=== PATIENT | female | born 1990 | race African-American/Black ===

== ENCOUNTER 2016-10-07 15:46 | Emergency (ER) | payer SELFPAY ==
[~2016-10-07] VITALS: Ht 160 cm; Wt 68.2 kg
[~2016-10-07 15:46] MED LIST: NITR100C62 PO; ONDA4TAB10 PO
[2016-10-07] MEDS ORDERED: ONDANSETRON PF 4 MG/2 ML VIAL. IV ONE (16:30)
[2016-10-07] MEDS ORDERED: IV NORMAL SALINE 1,000ML 1,000 ML IV SCH (16:30)
[2016-10-07 16:35] LABS: BASO % 0 % (0-3); EOS % 0 % (0-3); HEMATOCRIT 38.6 % (36.0-47.0); HEMOGLOBIN 12.8 g/dL (12.0-15.5); LYMPH # 0.4 x10^3/uL (1.0-4.8); LYMPH % 3 % (24-48); MEAN CORPUSCULAR HEMOGLOBIN 27 pg (25-35); MEAN CORPUSCULAR HGB CONC 33 g/dL (31-37); MEAN CORPUSCULAR VOLUME 82 fL (79-100); MONO % 7 % (0-9); NEUT # 12.9 x10^3uL (1.8-7.7); NEUT % 90 % (31-73); PLATELET COUNT 202 x10^3/uL (140-400); RED BLOOD COUNT 4.69 x10^6/uL (3.50-5.40); RED CELL DISTRIBUTION WIDTH 13.7 % (11.5-14.5); WHITE BLOOD COUNT 14.4 x10^3/uL (4.0-11.0)
[2016-10-07 16:47] LABS: ALBUMIN 3.5 g/dL (3.4-5.0); ALBUMIN/GLOBULIN RATIO 0.7 (1.0-1.7); CREATININE 0.9 mg/dL (0.6-1.0); GFR 92.3; POTASSIUM 3.7 mmol/L (3.5-5.1); TOTAL BILIRUBIN 0.6 mg/dL (0.2-1.0); TOTAL PROTEIN 8.2 g/dL (6.4-8.2)
[2016-10-07 16:52] LABS: INFLUENZA A PATIENT NEGATIVE (NEGATIVE); INFLUENZA B PATIENT NEGATIVE (NEGATIVE)
[2016-10-07 17:23] LABS: BILIRUBIN,URINE NEG (NEG); CLARITY,URINE HAZY; COLOR,URINE AMBER; GLUCOSE,URINE NEG (NEG); NITRITE,URINE NEG (NEG); UROBILINOGEN,URINE 0.2 mg/dL (0.2 mg/dL)
[2016-10-07 17:26] LABS: BACTERIA,URINE MOD /HPF (0-FEW); SQUAMOUS EPITHELIAL CELL,UR MOD /LPF
[2016-10-07 17:27] LABS: HYALINE CASTS, URINE FEW /HPF
[2016-10-07] MEDS ORDERED: ONDA4TAB10 SL (17:46)
[2016-10-07] MEDS ORDERED: HYDR-971 PO (17:46)
--- NOTE | 2016-10-07 17:46 | PHYS DOC ---
Past History Past Medical History: Endometriosis, Ovarian Cyst, UTI Past Surgical History: Appendectomy Smoking: Non-smoker Alcohol Use: None Drug Use: None Adult General Chief Complaint Chief Complaint: ABDOMINAL PAIN IN HPI HPI 26-year-old at 11 weeks of gestation complaining of 2 episode of vomiting and 4 episodes of diarrhea and cramping abdominal pain fever since 2 AM without sick contact. She denies vaginal bleeding, shortness of breath. Review of Systems Review of Systems Constitutional: see HPI] Eyes: Denies change in visual acuity, redness, or eye pain [] HENT: Denies sore throat [] Respiratory: Denies cough or shortness of breath [] Cardiovascular: See HPI GI: See HPI : Denies dysuria or hematuria [] Musculoskeletal: Denies back pain or joint pain [] Integument: Denies rash or skin lesions [] Neurologic: Denies headache, focal weakness or sensory changes [] Endocrine: Denies polyuria or polydipsia [] Current Medications Current Medications Current Medications Medications (Trade) Dose Ordered Sig/Lavon Start Time Stop Time Status Last Admin Dose Admin Ondansetron HCl (Zofran) 4 mg 1X ONCE 10/07/16 16:30 10/07/16 16:31 DC 10/07/16 16:29 4 MG Sodium Chloride (Iv Sodium Chloride 0.9% 1,000ml) 1,000 ml @ 1,000 mls/hr Q1H 10/07/16 16:30 17 17:29 DC 10/07/16 16:30 1,000 MLS/HR Allergies Allergies Allergies Coded Allergies Type Severity Reaction Last Updated Verified Sulfa (Sulfonamide Antibiotics) Allergy Severe Nausea and Vomiting 11/05/13 Yes Physical Exam Physical Exam Constitutional: Mild distress, non-toxic appearance. [] HENT: Normocephalic, atraumatic, bilateral external ears normal, oropharynx moist, no oral exudates, nose normal. [] Eyes: PERRLA, EOMI, conjunctiva normal, no discharge. [] Neck: Normal range of motion, no tenderness, supple, no stridor. [] Cardiovascular:Heart rate regular rhythm, no murmur [] Lungs & Thorax: Bilateral breath sounds clear to auscultation [] Abdomen: Bowel sounds normal, soft, no tenderness, no masses, no pulsatile masses. [] Skin: Warm, dry, no erythema, no rash. [] Back: No tenderness, no CVA tenderness. [] Extremities: No tenderness, no cyanosis, no clubbing, ROM intact, no edema. [] Neurologic: Alert and oriented X 3, normal motor function, normal sensory function, no focal deficits noted. [] Psychologic: Affect normal, judgement normal, mood normal. [] Current Patient Data Vital Signs Vital Signs Date Time Temp Pulse Resp B/P Pulse Ox O2 Delivery O2 Flow Rate FiO2 10/07/16 15:46 100.2 97 18 97 Room Air Lab Results Laboratory Tests Test 10/07/16 16:13 10/07/16 16:58 White Blood Count 14.4x10^3/uL (4.0-11.0) H Red Blood Count 4.69x10^6/uL (3.50-5.40) Hemoglobin 12.8g/dL (12.0-15.5) Hematocrit 38.6% (36.0-47.0) Mean Corpuscular Volume 82fL (79-100) Mean Corpuscular Hemoglobin 27pg (25-35) Mean Corpuscular Hemoglobin Concent 33g/dL (31-37) Red Cell Distribution Width 13.7% (11.5-14.5) Platelet Count 202x10^3/uL (140-400) Neutrophils (%) (Auto) 90% (31-73) H Lymphocytes (%) (Auto) 3% (24-48) L Monocytes (%) (Auto) 7% (0-9) Eosinophils (%) (Auto) 0% (0-3) Basophils (%) (Auto) 0% (0-3) Neutrophils # (Auto) 12.9x10^3uL (1.8-7.7) H Lymphocytes # (Auto) 0.4x10^3/uL (1.0-4.8) L Monocytes # (Auto) 1.0x10^3/uL (0.0-1.1) Eosinophils # (Auto) 0.0x10^3/uL (0.0-0.7) Basophils # (Auto) 0.0x10^3/uL (0.0-0.2) Sodium Level 134mmol/L (136-145) L Potassium Level 3.7mmol/L (3.5-5.1) Chloride Level 98mmol/L (98-107) Carbon Dioxide Level 24mmol/L (21-32) Anion Gap 12 (6-14) Blood Urea Nitrogen 6mg/dL (7-20) L Creatinine 0.9mg/dL (0.6-1.0) Estimated GFR (Cockcroft-Gault) 92.3 BUN/Creatinine Ratio 7 (6-20) Glucose Level 91mg/dL (70-99) Calcium Level 9.0mg/dL (8.5-10.1) Total Bilirubin 0.6mg/dL (0.2-1.0) Aspartate Amino Transferase (AST) 11U/L (15-37) L Alanine Aminotransferase (ALT) 16U/L (14-59) Alkaline Phosphatase 67U/L (46-116) Total Protein 8.2g/dL (6.4-8.2) Albumin 3.5g/dL (3.4-5.0) Albumin/Globulin Ratio 0.7 (1.0-1.7) L Lipase 92U/L (73-393) Influenza Type A (Rapid) Negative (NEGATIVE) Influenza Type B (Rapid) Negative (NEGATIVE) Urine Collection Type Unknown Urine Color Clarisa Urine Clarity Hazy Urine pH 5.5 Urine Specific Harold 1.025 Urine Protein 30 mg/dl (NEG-TRACE) Urine Glucose (UA) Negmg/dL (NEG) Urine Ketones (Stick) >=160mg/dL (NEG) Urine Blood Mod (NEG) Urine Nitrite Neg (NEG) Urine Bilirubin Neg (NEG) Urine Urobilinogen Dipstick 0.2mg/dL (0.2 mg/dL) Urine Leukocyte Esterase Small (NEG) Urine RBC 3-5/HPF (0-2) Urine WBC 11-20/HPF (0-4) Urine Squamous Epithelial Cells Mod/LPF Urine Bacteria Mod/HPF (0-FEW) Urine Hyaline Casts Few/HPF Urine Mucus Marked/LPF EKG EKG [] Radiology/Procedures Radiology/Procedures [] Course & Med Decision Making Course & Med Decision Making Pertinent Labs reviewed. (See chart for details) Evaluation of patient showed elevated weeks complaining of 2 episodes of vomiting and 4 episodes of diarrhea and fever. Temperature 100.1 in ER. Patient treated with IV fluid and Zofran. patient had a white count of 14,000 with history of appendectomy. Plan discharge patient home to diagnoses of acute gastroenteritis and fever and instruction to follow up with his physician as needed. UA shows UTI and Rocephin was ordered. Dragon Disclaimer Dragon Disclaimer This chart was dictated in whole or in part using Voice Recognition software in a busy, high-work load, and often noisy Emergency Department environment. It may contain unintended and wholly unrecognized errors or omissions. Departure Departure: Impression: Primary Impression: Acute gastroenteritis Additional Impressions: Fever Currently UTI (urinary tract infection) during Condition: IMPROVED Referrals: PERICO ARTEAGA MD (PCP) Patient Instructions: Viral Gastroenteritis Scripts Cephalexin (Keflex)500 Mg Capsule1 Cap PO TID #21 CAP Prov:AMALIA LONGORIA MD 10/07/16 Hydrocodone Bit/Acetaminophen (Sigel 5-325 Tablet)1 Each Tablet1 Tab PO QID PRN PAIN #14 TAB Ref 0 Prov:AMALIA LONGORIA MD 10/07/16 Ondansetron (Zofran Odt)4 Mg Tab.rapdis1 Tab SL Q8HRS #15 TAB Prov:AMALIA LONGORIA MD 10/07/16 Problem Qualifiers AMALIA LONGORIA MD Oct 07, 2016 17:46
[2016-10-07] MEDS ORDERED: CEPH-264 PO (17:49)
[2016-10-07] MEDS ORDERED: CEFTRIAXONE SODIUM 1 GM in IV NORMAL SALINE 50ML 50 ML IV ONE (18:00)
[2016-10-07] MEDS ORDERED: IV NORMAL SALINE 1,000ML 1,000 ML IV ONE (18:00)
[2016-10-07] MEDS ORDERED: CEFTRIAXONE SODIUM 1 GM VIAL IV ONE (18:11)
[2016-10-07] MEDS ORDERED: IV NORMAL SALINE 50ML 50 ML ONE (18:11)
[2016-10-07] MEDS ORDERED: ACETAMINOPHEN 325 MG TABLET PO ONE (19:00)
[2016-10-07 19:25] VITALS: BP 104/58
== END 2016-10-07 19:25 | disposition home or self-care (01) ==
LOC: ER 15:46
DX: O99.611 Diseases of the digestive system complicating pregnancy, first trimester (principal); K52.9 Noninfective gastroenteritis and colitis, unspecified; R50.9 Fever, unspecified; O23.41 Unspecified infection of urinary tract in pregnancy, first trimester; Z3A.11 11 weeks gestation of pregnancy; Z88.2 Allergy status to sulfonamides
CPT/HCPCS: 36415; 80053; 81001; 83690; 85027; 87804; 99284; J0696; J2405; J7030

== ENCOUNTER → 2017-03-01 | Outpatient (CLI) | payer OTHER ==
[~2017-03-01] MED LIST changes: +CEPH-264 PO; +HYDR-971 PO; +ONDA4TAB10 SL
--- NOTE | 2017-03-01 16:42 | RAD ---
Three-view lumbar spine radiographs 03/13/2017 Clinical history: Low back pain which radiates down both legs for the last 2 months. AP and 2 lateral digital radiographs of the lumbar spine were obtained. Minimal S shaped curvature of the thoracic lumbar spine is seen. L5 is partially sacralized. Hypoplastic ribs are seen at T12. No fracture or subluxation of the lumbar vertebrae is seen. No significant degenerative changes are noted. Impression: No acute osseous abnormality is seen.
== END | disposition home or self-care (01) ==
LOC: DXRADRC 15:57
PROVIDERS: ATTEND Physician Assistant
DX: M54.16 Radiculopathy, lumbar region (principal)
CPT/HCPCS: 72100

== ENCOUNTER → 2018-07-20 | Outpatient (CLI) | payer OTHER ==
[~2018-07-20] MED LIST changes: +HYDR-3165 PO; -HYDR-971 PO
--- NOTE | 2018-07-20 12:57 | RAD ---
Examination: Bilateral Lower Extremity Venous Doppler Ultrasound History: Lower extremity swelling Comparison: None Procedure: Briones scale, color flow 2D and spectal waveform analysis images are obtained with and without compression in the area of the common femoral vein, superficial femoral vein - femoral vein junction, main femoral vein (superficial femoral vein) and popliteal vein. Veins of the proximal calf are also imaged. Findings: There is normal duplex flow, color flow and compressibility of all visualized vein segments. No evidence of deep venous thrombus is present. Impression: No evidence of DVT in the visualized bilateral lower extremity venous system. Electronically signed by: Sukhjinder Sweeney MD (07/20/2018 12:53 PM) [place] [id number]
== END | disposition home or self-care (01) ==
LOC: US 10:57
PROVIDERS: ATTEND Internal Medicine Medical Oncology
DX: R60.0 Localized edema (principal); N96 Recurrent pregnancy loss
CPT/HCPCS: 93970

== ENCOUNTER → 2018-08-16 | Outpatient (CLI) | payer OTHER ==
--- NOTE | 2018-08-16 16:56 | RAD ---
Indication: History of Endometriosis. Pelvic pain. TECHNIQUE: Grayscale, color Doppler and spectral waveform images of the pelvis COMPARISON: None FINDINGS: The uterus is anteverted and measures 9.0 x 4.0 x 5.1 cm (longitudinal, AP, transverse). Endometrial stripe measures 1 cm in thickness and is within normal limits. The right ovary measures 2.4 x 1.5 x 1.2 cm. The left ovary measures 3.3 x 2.0 x 3.0 cm with a 0.9 x 0.8 x 1.1 cm dominant follicle. Bilateral ovaries show blood flow. No free pelvic fluid. IMPRESSION: No acute findings. Electronically signed by: Tyrell Mesa DO (08/16/2018 4:51 PM) [id number]
== END | disposition home or self-care (01) ==
LOC: US 14:24
PROVIDERS: ATTEND Obstetrics & Gynecology
DX: N80.9 Endometriosis, unspecified (principal)
CPT/HCPCS: 76830; 76856

== ENCOUNTER 2018-11-04 08:27 | Emergency (ER) | payer OTHER ==
[~2018-11-04] VITALS: Ht 160 cm; Wt 83.2 kg
[2018-11-04] MEDS ORDERED: IV NORMAL SALINE 1,000ML 1,000 ML IV SCH (08:43)
--- NOTE | 2018-11-04 08:50 | PHYS DOC ---
Past History Past Medical History: Endometriosis, Ovarian Cyst, UTI, Other Additional Past Medical Histor: SLE, Protein S, blood clots Past Surgical History: Appendectomy, Hysterectomy Smoking: Non-smoker Alcohol Use: None Drug Use: None Adult General Chief Complaint Chief Complaint: POST-OP PROBLEM HPI HPI Patient is a 28-year-old female presents with diffuse abdominal pain. This is been present for the past 3-4 days, getting worse over time. Patient is approximately 3 weeks post hysterectomy. She notes that the bleeding postop has been improving. This procedure was performed transvaginally. She notes some nausea, no vomiting, no diarrhea. Movement makes the discomfort worse. She also notes some dysuria as well as cloudy urine for the past several days as well. No fever, however she is experiencing the hot flashes with having had the hysterectomy. Hysterectomy was performed due to endometriosis. Patient is currently on heparin therapy due to history of previous blood clots due to lupus as well as protein S disorder. Surgery was performed at [facility].[] Review of Systems Review of Systems Constitutional: Denies fever or chills [] Eyes: Denies change in visual acuity, redness, or eye pain [] HENT: Denies nasal congestion or sore throat [] Respiratory: Denies cough or shortness of breath [] Cardiovascular: No chest pain or palpitations[] GI: See history of present illness[] : Denies hematuria, see history of present illness [] Musculoskeletal: Denies back pain or joint pain [] Integument: Denies rash or skin lesions [] Neurologic: Denies headache, focal weakness or sensory changes [] Endocrine: Denies polyuria or polydipsia [] All other systems were reviewed and found to be within normal limits, except as documented in this note. Allergies Allergies Allergies Coded Allergies Type Severity Reaction Last Updated Verified Sulfa (Sulfonamide Antibiotics) Allergy Severe Nausea and Vomiting 11/05/13 Yes Physical Exam Physical Exam Constitutional: Well developed, well nourished, no acute distress, non-toxic appearance. [] HENT: Normocephalic, atraumatic, bilateral external ears normal, oropharynx moist, no oral exudates, nose normal. [] Eyes: PERRLA, EOMI, conjunctiva normal, no discharge. [] Neck: Normal range of motion, no tenderness, supple, no stridor. [] Cardiovascular:Heart rate regular rhythm, no murmur [] Lungs & Thorax: Bilateral breath sounds clear to auscultation [] Abdomen: Bowel sounds normal, soft, diffuse tenderness, no rebound, no guarding , no rigidity, sits up and lays back without any significant difficulty., no masses, no pulsatile masses. [] Skin: Warm, dry, no erythema, no rash. [] Back: No tenderness, no CVA tenderness. [] Extremities: No tenderness, no cyanosis, no clubbing, ROM intact, no edema. [] Neurologic: Alert and oriented X 3, normal motor function, normal sensory function, no focal deficits noted. [] Psychologic: Affect normal, judgement normal, mood normal. [] EKG EKG [] Radiology/Procedures Radiology/Procedures PROCEDURE: CT ABD PELV W/ IV CONTRST ONLY CT abdomen and pelvis with contrast. HISTORY: Hysterectomy 3 weeks ago, abdominal pain CT scan the abdomen and pelvis was done using 75 mL Omnipaque 300 contrast. Lung bases are clear. There is no effusion. A liver lesion is not identified. There is no calcified gallstone. Spleen and adrenal glands are normal. Pancreas is normal. There is no mass or hydronephrosis in the kidneys. There is a focal scar in the upper left kidney. There is no free air or ascites or bowel obstruction. Appendix is not identified possibly previous appendectomy. There is a trace of inflammation or fluid in the lower pelvis without an abscess. There is a small amount of air in the vagina. Ovaries are identified and appear normal. IMPRESSION: 1. Minimal inflammation or fluid in the lower pelvis without a defined abscess. 2. No free air. 3. No bowel obstruction 4. Mild scarring in the left kidney. 5. No hydronephrosis or obstruction of the kidneys.[] Course & Med Decision Making Course & Med Decision Making Pertinent Labs and Imaging studies reviewed. (See chart for details) ED course: Patient arrived, was placed in bed, and tolerated exam well. She was transported to and from [place] with any complications. She was given IV fluids as well as pain medicines which didn't improve her pain. After the results of the laboratory and imaging studies were obtained, these were discussed with the patient voiced understanding. She was given initial dose of IV antibiotics for the urinary tract infection. She was discharged in improved condition after all questions were answered. Medical decision making: There is no evidence of obstruction, perforation, abscess, retained surgical instrument, pyelonephritis, nor significant bleeding. [] Dragon Disclaimer Dragon Disclaimer This electronic medical record was generated, in whole or in part, using a voice recognition dictation system. Departure Departure: Impression: Primary Impression: Abdominal pain Additional Impression: Urinary tract infection Disposition: HOME, SELF-CARE Condition: IMPROVED Referrals: ZENA CAMPOS MD (PCP) Follow-up in 2 days Patient Instructions: Abdominal Pain, Hysterectomy, Care After, Urinary Tract Infection Additional Instructions: Drink plenty of fluids. Follow-up with your primary care physician or [facility] in 2 days. Take the medication as prescribed. Return to the ER if worsening discomfort, unable to tolerate liquids, or any other concerns. Scripts Metoclopramide Hcl (REGLAN) 10 Mg Tablet 10 MG PO QID for nausea and vomiting, #30 TAB Prov: FATIMAH SHOEMAKER DO 11/04/18 Meloxicam (MELOXICAM) 7.5 Mg Tablet 7.5 MG PO DAILY for PAIN, #20 TAB Prov: FATIMAH SHOEMAKER DO 11/04/18 Hyoscyamine Sulfate (LEVSIN) 0.125 Mg Tablet 0.125 MG PO QID for abdominal pain/cramping, #30 TAB Prov: FATIMAH SHOEMAKER DO 11/04/18 Cephalexin (KEFLEX) 500 Mg Capsule 500 MG PO TID for UTI for 10 Days, #30 CAP Prov: FATIMAH SHOEMAKER DO 11/04/18 Problem Qualifiers Primary Impression: Abdominal pain Abdominal location: generalized Qualified Codes: R10.84 - Generalized abdominal pain Additional Impression: Urinary tract infection Urinary tract infection type: site unspecified Hematuria presence: without hematuria Qualified Codes: N39.0 - Urinary tract infection, site not specified FATIMAH SHOEMAKER DO Nov 04, 2018 08:50
[2018-11-04] MEDS ORDERED: IOHEXOL 300 MG/ML 75 ML VIAL. IV ONE (09:00)
[2018-11-04] MEDS ORDERED: PROCHLORPERAZINE 10 MG/2 ML VIAL. IV ONE (09:00)
[2018-11-04 09:07] LABS: BACTERIA,URINE MOD /HPF (0-FEW); BILIRUBIN,URINE NEG (NEG); CLARITY,URINE CLOUDY; COLOR,URINE YELLOW; GLUCOSE,URINE NEG (NEG); NITRITE,URINE NEG (NEG); SQUAMOUS EPITHELIAL CELL,UR OCC /LPF; UROBILINOGEN,URINE 0.2 mg/dL (0.2 mg/dL); WBC,URINE 20-40 /HPF (0-4)
[2018-11-04 09:21] LABS: BASO % 1 % (0-3); EOS # 0.2 x10^3/uL (0.0-0.7); EOS % 2 % (0-3); HEMATOCRIT 36.5 % (36.0-47.0); HEMOGLOBIN 11.7 g/dL (12.0-15.5); LYMPH # 1.8 x10^3/uL (1.0-4.8); LYMPH % 26 % (24-48); MEAN CORPUSCULAR HEMOGLOBIN 25 pg (25-35); MEAN CORPUSCULAR HGB CONC 32 g/dL (31-37); MEAN CORPUSCULAR VOLUME 78 fL (79-100); MONO # 0.7 x10^3/uL (0.0-1.1); MONO % 11 % (0-9); NEUT # 4.3 x10^3uL (1.8-7.7); NEUT % 60 % (31-73); PLATELET COUNT 283 x10^3/uL (140-400); RED BLOOD COUNT 4.71 x10^6/uL (3.50-5.40); RED CELL DISTRIBUTION WIDTH 14.6 % (11.5-14.5); WHITE BLOOD COUNT 7.1 x10^3/uL (4.0-11.0)
[2018-11-04 09:34] LABS: ALBUMIN 3.7 g/dL (3.4-5.0); ALBUMIN/GLOBULIN RATIO 0.8 (1.0-1.7); CALCIUM 9.3 mg/dL (8.5-10.1); CREATININE 0.8 mg/dL (0.6-1.0); GFR 104.1; POTASSIUM 3.7 mmol/L (3.5-5.1); TOTAL BILIRUBIN 0.2 mg/dL (0.2-1.0); TOTAL PROTEIN 8.1 g/dL (6.4-8.2)
--- NOTE | 2018-11-04 09:55 | RAD ---
CT abdomen and pelvis with contrast. HISTORY: Hysterectomy 3 weeks ago, abdominal pain CT scan the abdomen and pelvis was done using 75 mL Omnipaque 300 contrast. Lung bases are clear. There is no effusion. A liver lesion is not identified. There is no calcified gallstone. Spleen and adrenal glands are normal. Pancreas is normal. There is no mass or hydronephrosis in the kidneys. There is a focal scar in the upper left kidney. There is no free air or ascites or bowel obstruction. Appendix is not identified possibly previous appendectomy. There is a trace of inflammation or fluid in the lower pelvis without an abscess. There is a small amount of air in the vagina. Ovaries are identified and appear normal. IMPRESSION: 1. Minimal inflammation or fluid in the lower pelvis without a defined abscess. 2. No free air. 3. No bowel obstruction 4. Mild scarring in the left kidney. 5. No hydronephrosis or obstruction of the kidneys. Electronically signed by: Donell Thomas MD (11/04/2018 9:51 AM) [facility]
[2018-11-04] MEDS ORDERED: cefTRIAXone SODIUM 1 GM VIAL ONE (10:05)
[2018-11-04] MEDS ORDERED: IV NORMAL SALINE 50ML 50 ML ONE (10:05)
[2018-11-04 10:12] VITALS: BP 106/59
[2018-11-04] MEDS ORDERED: CEPH-264 PO (10:17)
[2018-11-04] MEDS ORDERED: MELO7.5T29 PO (10:17)
[2018-11-04] MEDS ORDERED: HYOS0.1264 PO (10:17)
[2018-11-04] MEDS ORDERED: METO10TA81 PO (10:17)
== END 2018-11-04 10:20 | disposition home or self-care (01) ==
LOC: ER 08:27
DX: N39.0 Urinary tract infection, site not specified (principal); G89.18 Other acute postprocedural pain; Z87.440 Personal history of urinary (tract) infections; Z90.89 Acquired absence of other organs; Z90.710 Acquired absence of both cervix and uterus; Z88.2 Allergy status to sulfonamides
CPT/HCPCS: 36415; 74177; 80053; 81001; 83605; 83690; 85025; 85610; 85730; 87086; 96374; 96375; 96376; 99285; J0696; J0780; J3010; J7030

== ENCOUNTER 2019-01-07 17:56 | Emergency (ER) | payer OTHER ==
[~2019-01-07] VITALS: Ht 160 cm; Wt 81.6 kg
[~2019-01-07 17:56] MED LIST changes: +HYOS0.1264 PO; +MELO7.5T29 PO; +METO10TA81 PO
[2019-01-07] MEDS: IV RINGERS SOLUTION,LACTATED 1,000 ML IV SCH (18:22)
[2019-01-07] MEDS: ASPIRIN 81 MG TAB.CHEW PO ONE (18:25)
[2019-01-07 18:42] LABS: BASO % 1 % (0-3); EOS # 0.2 x10^3/uL (0.0-0.7); EOS % 3 % (0-3); HEMATOCRIT 38.8 % (36.0-47.0); HEMOGLOBIN 12.4 g/dL (12.0-15.5); LYMPH % 34 % (24-48); MEAN CORPUSCULAR HEMOGLOBIN 24 pg (25-35); MEAN CORPUSCULAR HGB CONC 32 g/dL (31-37); MEAN CORPUSCULAR VOLUME 76 fL (79-100); MONO % 12 % (0-9); NEUT # 4.5 x10^3uL (1.8-7.7); NEUT % 51 % (31-73); PLATELET COUNT 303 x10^3/uL (140-400); RED BLOOD COUNT 5.15 x10^6/uL (3.50-5.40); RED CELL DISTRIBUTION WIDTH 15.6 % (11.5-14.5); WHITE BLOOD COUNT 8.8 x10^3/uL (4.0-11.0)
[2019-01-07 18:51] LABS: ALBUMIN 3.8 g/dL (3.4-5.0); CALCIUM 9.2 mg/dL (8.5-10.1); CREATININE 0.8 mg/dL (0.6-1.0); DIRECT BILIRUBIN 0.1 mg/dL (0.0-0.2); GFR 104.1; POTASSIUM 3.4 mmol/L (3.5-5.1); TOTAL BILIRUBIN 0.3 mg/dL (0.2-1.0); TOTAL PROTEIN 8.6 g/dL (6.4-8.2)
--- NOTE | 2019-01-07 18:55 | RAD ---
Two-view chest dated 01/07/2019. No comparison available. CLINICAL INDICATION: Chest pain. FINDINGS: PA and lateral views obtained. Heart and mediastinal contours within normal limits. Lungs are clear. No consolidation or pleural effusion. No pneumothorax. IMPRESSION: No acute radiographic abnormality. Electronically signed by: Aleksander Perez MD (01/07/2019 6:52 PM) [facility]
--- NOTE | 2019-01-07 19:16 | ED.ADGEN ---
Past History Past Medical History: Gallstones, GERD, Other Additional Past Medical Histor: SLE, Protein S, blood clots Past Surgical History: Hysterectomy Smoking: Non-smoker Alcohol Use: None Drug Use: None Adult General Chief Complaint Chief Complaint ".. I ve been having chest pain for two days.. but it been constant today.. here in the center.. hurts with deep breaths and cough.... I do have Protein S deficiency..they discovered it after I kept having miscarries..... And take heparin shots for it.. I ve had chest pain before they though it was because of flu... but I did have cousin that had CA at age 30...".. HPI HPI Patient is a 28 year old female who presents with above hx and complaints of central pleuritic chest / epigastric described as severe. Patient denies previous cardiac issues. 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 Take heparin injections. No recent travel. No significant trauma. No history of cough fever or chills. Patient normally follows with Dr. Brock. Review of Systems Review of Systems Constitutional: Denies fever or chills [] Eyes: Denies change in visual acuity, redness, or eye pain [] HENT: Denies nasal congestion or sore throat [] Respiratory: Denies cough or shortness of breath [] Cardiovascular: No additional information not addressed in HPI [] GI: Rt. upper and epigastric abdominal pain. nausea, vomiting, bloody stools or diarrhea [] : Denies dysuria or hematuria [] Musculoskeletal: Denies back pain or joint pain [] Integument: Denies rash or skin lesions [] Neurologic: Denies headache, focal weakness or sensory changes [] Endocrine: Denies polyuria or polydipsia [] All other systems were reviewed and found to be within normal limits, except as documented in this note. Family History Family History Cousin that had CA age 30 Current Medications Current Medications Current Medications Medications (Trade) Dose Ordered Sig/Lavon Start Time Stop Time Status Last Admin Dose Admin Acetaminophen (Tylenol) 1,000 mg 1X ONCE 01/07/19 20:45 01/07/19 20:45 DC Aspirin (Children'S Aspirin) 324 mg 1X ONCE 01/07/19 18:30 01/07/19 18:31 DC 01/07/19 18:25 324 MG Enoxaparin Sodium (Lovenox 80mg Syringe) 80 mg 1X ONCE 01/07/19 20:45 01/07/19 20:51 DC 01/07/19 20:53 80 MG Info (Do NOT chart on this entry -- for MONITORING) 1 each PRN DAILY PRN 01/07/19 19:30 01/07/19 21:05 DC Iohexol (Omnipaque 350 Mg/ml) 100 ml 1X ONCE 01/07/19 19:15 01/07/19 19:22 DC 01/07/19 19:25 100 ML Ketorolac Tromethamine (Toradol 30mg Vial) 30 mg 1X ONCE 01/07/19 19:30 01/07/19 19:34 DC 01/07/19 19:40 30 MG Lactated Ringer's 1,000 ml @ 1,000 mls/hr Q1H 01/07/19 18:19 01/07/19 19:18 DC 01/07/19 18:22 1,000 MLS/HR Potassium Chloride (KCl Oral Soln) 40 meq 1X ONCE 01/07/19 19:30 01/07/19 19:31 DC 01/07/19 19:39 40 MEQ See nursing for home meds Allergies Allergies Allergies Coded Allergies Type Severity Reaction Last Updated Verified hydrocodone Allergy Unknown 11/04/18 Yes Sulfa (Sulfonamide Antibiotics) Adverse Reaction Severe Nausea and Vomiting 01/07/19 Yes Physical Exam Physical Exam Constitutional:moderately acute distress, non-toxic appearance. [] HENT: Normocephalic, atraumatic, bilateral external ears normal, oropharynx moist, no oral exudates, nose normal. [] Eyes: PERRLA, EOMI, conjunctiva normal, no discharge. [] Neck: Normal range of motion, no tenderness, supple, no stridor. [] Cardiovascular:Heart rate regular rhythm, no murmur [] Lungs & Thorax: Bilateral breath sounds equal apex on auscultation [] Abdomen: Bowel sounds normal, soft, epigastric and rt. upper quadrant ten derness, no masses, no pulsatile masses. [] Surgery scar Skin: Warm, dry, no erythema, no rash. [] Back: No tenderness, no CVA tenderness. [] Extremities: No tenderness, no cyanosis, no clubbing, ROM intact, no edema. [] No cording appreciated Neurologic: Alert and oriented X 3, normal motor function, normal sensory function, no focal deficits noted. [] Psychologic: Affect anxious, judgement normal, mood normal. [] Current Patient Data Vital Signs Vital Signs Date Time Temp Pulse Resp B/P (MAP) Pulse Ox O2 Delivery O2 Flow Rate FiO2 01/07/19 21:00 67 18 116/62 (80) 100 Room Air 01/07/19 18:06 97.7 Lab Results Laboratory Tests Test 01/07/19 18:00 01/07/19 18:10 White Blood Count 8.8 x10^3/uL (4.0-11.0) Red Blood Count 5.15 x10^6/uL (3.50-5.40) Hemoglobin 12.4 g/dL (12.0-15.5) Hematocrit 38.8 % (36.0-47.0) Mean Corpuscular Volume 76 fL (79-100) L Mean Corpuscular Hemoglobin 24 pg (25-35) L Mean Corpuscular Hemoglobin Concent 32 g/dL (31-37) Red Cell Distribution Width 15.6 % (11.5-14.5) H Platelet Count 303 x10^3/uL (140-400) Neutrophils (%) (Auto) 51 % (31-73) Lymphocytes (%) (Auto) 34 % (24-48) Monocytes (%) (Auto) 12 % (0-9) H Eosinophils (%) (Auto) 3 % (0-3) Basophils (%) (Auto) 1 % (0-3) Neutrophils # (Auto) 4.5 x10^3uL (1.8-7.7) Lymphocytes # (Auto) 3.0 x10^3/uL (1.0-4.8) Monocytes # (Auto) 1.0 x10^3/uL (0.0-1.1) Eosinophils # (Auto) 0.2 x10^3/uL (0.0-0.7) Basophils # (Auto) 0.0 x10^3/uL (0.0-0.2) Prothrombin Time 10.3 SEC (9.4-11.4) Prothrombin Time INR 1.0 (0.9-1.1) PTT 30 SEC (23-33) D-Dimer (Naila) 0.30 mg/L (0.00-0.50) Sodium Level 141 mmol/L (136-145) Potassium Level 3.4 mmol/L (3.5-5.1) L Chloride Level 103 mmol/L (98-107) Carbon Dioxide Level 30 mmol/L (21-32) Anion Gap 8 (6-14) Blood Urea Nitrogen 9 mg/dL (7-20) Creatinine 0.8 mg/dL (0.6-1.0) Estimated GFR (Cockcroft-Gault) 104.1 Glucose Level 72 mg/dL (70-99) Calcium Level 9.2 mg/dL (8.5-10.1) Magnesium Level 2.0 mg/dL (1.8-2.4) Total Bilirubin 0.3 mg/dL (0.2-1.0) Direct Bilirubin 0.1 mg/dL (0.0-0.2) Aspartate Amino Transferase (AST) 14 U/L (15-37) L Alanine Aminotransferase (ALT) 18 U/L (14-59) Alkaline Phosphatase 81 U/L (46-116) Creatine Kinase 79 U/L (26-192) Troponin I Quantitative < 0.017 ng/mL (0-0.055) XQ-Jli-D-Type Natriuretic Peptide 68 pg/mL (0-124) Total Protein 8.6 g/dL (6.4-8.2) H Albumin 3.8 g/dL (3.4-5.0) Lipase 111 U/L (73-393) Urine Opiates Screen Neg (NEG) Urine Methadone Screen Neg (NEG) Urine Barbiturates Neg (NEG) Urine Phencyclidine Screen Neg (NEG) Urine Amphetamine/Methamphetamine Neg (NEG) Urine Benzodiazepines Screen Neg (NEG) Urine Cocaine Screen Neg (NEG) Urine Cannabinoids Screen Neg (NEG) Urine Ethyl Alcohol Neg (NEG) Urine Collection Type Unknown Urine Color Yellow Urine Clarity Cloudy Urine pH 6.0 Urine Specific [place] >=1.030 Urine Protein 30 mg/dl (NEG-TRACE) Urine Glucose (UA) Neg mg/dL (NEG) Urine Ketones (Stick) Trace mg/dL (NEG) Urine Blood Neg (NEG) Urine Nitrite Neg (NEG) Urine Bilirubin Neg (NEG) Urine Urobilinogen Dipstick 0.2 mg/dL (0.2 mg/dL) Urine Leukocyte Esterase Neg (NEG) Urine RBC 0 /HPF (0-2) Urine WBC 0 /HPF (0-4) Urine Squamous Epithelial Cells Many /LPF Urine Bacteria Mod /HPF (0-FEW) Urine Mucus Mod /LPF EKG EKG I interpretation EKG shows sinus rhythm at 67 bpm. No acute morphology.[] Radiology/Procedures Radiology/Procedures Interpretation chest x-ray shows no acute cardiopulmonary findings.[][place] [id number] IMAGING REPORT Signed PATIENT: VITO DANIELLE ACCOUNT: [id number] : 1990 LOCATION: ER AGE: 28 SEX: F EXAM STATUS: REG ER ORD. PHYSICIAN: ABBY OLIVIER MD REASON: Omni 350,100ml IV.Chest pain,Pleuritic.Hx Protein S Deficiency PROCEDURE: CT ANGIOGRAPHY CHEST CTA chest with contrast dated 01/07/2019. No comparison available. CLINICAL INDICATION: Chest pain. Protein S deficiency. TECHNIQUE: Contiguous axial imaging the chest performed following the intravenous administration of 100 cc Omnipaque 350. Study was performed as dedicated PE protocol with thin cut coronal MIPS 3-D reconstruction. One or more of the following individualized dose reduction techniques were utilized for this examination: 1. Automated exposure control 2. Adjustment of the mA and/or kV according to patient size 3. Use of iterative reconstruction technique. FINDINGS: Contrast bolus is adequate. No evidence of central, lobar or segmental pulmonary embolus. Subsegmental branches are not well evaluated based on technique. Heart size within normal limits. No pericardial effusion. No mediastinal, hilar or axillary lymphadenopathy. There is some increased density at the anterior superior mediastinum that likely represents residual thymic tissue. Central airways are patent. Dependent opacity at the lower lobes, likely atelectasis. Lungs are otherwise clear. No consolidation or pleural effusion. No pneumothorax. There is a nonspecific small subpleural nodule in the right middle lobe on image 69 measures 3 mm small noncalcified subpleural nodule in the right lower lobe on image 57 measures 3 mm. Limited images of upper abdomen show stone filled gallbladder. Bone windows show no acute findings. IMPRESSION: 1. No evidence of central, lobar or segmental pulmonary embolus. 2. There are couple small noncalcified pulmonary nodules in the right middle lobe and right lower lobe, nonspecific. 3. Cholelithiasis. Electronically signed by: Aleksander Perez MD (01/07/2019 7:56 PM) [facility] DICTATED AND SIGNED BY: ALEKSANDER PEREZ MD DATE: 01/07/191955 CC: ABBY OLIVIER MD; ZENA BROCK MD ~ Course & Med Decision Making Course & Med Decision Making Pertinent Labs and Imaging studies reviewed. (See chart for details) Clear fluids and fat free diet. Take Zantac 150 twice a day. Would resume the Lovenox as previously directed for your Protein S def. Consider getting out pt. stress testing if concern for cardiac. Consider out pt. EGD work up and Biliary colic evaluation. Push fluids. Get adequate rest. Return if any concerns. Have primary review work up and CT. [] Final Impression Final Impression 1. Pleuritic chest pain[]/Epigastric Pain 2. History of protein S deficiency 3. Hypokalemia 3.4 4. Microcytic hypochromic indices 5. Mild elevation Monocytes 12 6. Gall Stones Dragon Disclaimer Dragon Disclaimer This electronic medical record was generated, in whole or in part, using a voice recognition dictation system. Discharge Summary Visit Information Final Diagnosis Problems Medical Problems: (1) Chest wall pain Status: Acute (2) Gall stones Status: Acute (3) Protein S deficiency Status: Acute Brief Hospital Course Allergies Allergies Coded Allergies Type Severity Reaction Last Updated Verified hydrocodone Allergy Unknown 11/04/18 Yes Sulfa (Sulfonamide Antibiotics) Adverse Reaction Severe Nausea and Vomiting 01/07/19 Yes Vital Signs Vital Signs Date Time Temp Pulse Resp B/P (MAP) Pulse Ox O2 Delivery O2 Flow Rate FiO2 01/07/19 21:00 67 18 116/62 (80) 100 Room Air 01/07/19 18:06 97.7 Lab Results Laboratory Tests Test 01/07/19 18:00 01/07/19 18:10 White Blood Count 8.8 x10^3/uL (4.0-11.0) Red Blood Count 5.15 x10^6/uL (3.50-5.40) Hemoglobin 12.4 g/dL (12.0-15.5) Hematocrit 38.8 % (36.0-47.0) Mean Corpuscular Volume 76 fL (79-100) Mean Corpuscular Hemoglobin 24 pg (25-35) Mean Corpuscular Hemoglobin Concent 32 g/dL (31-37) Red Cell Distribution Width 15.6 % (11.5-14.5) Platelet Count 303 x10^3/uL (140-400) Neutrophils (%) (Auto) 51 % (31-73) Lymphocytes (%) (Auto) 34 % (24-48) Monocytes (%) (Auto) 12 % (0-9) Eosinophils (%) (Auto) 3 % (0-3) Basophils (%) (Auto) 1 % (0-3) Neutrophils # (Auto) 4.5 x10^3uL (1.8-7.7) Lymphocytes # (Auto) 3.0 x10^3/uL (1.0-4.8) Monocytes # (Auto) 1.0 x10^3/uL (0.0-1.1) Eosinophils # (Auto) 0.2 x10^3/uL (0.0-0.7) Basophils # (Auto) 0.0 x10^3/uL (0.0-0.2) Prothrombin Time 10.3 SEC (9.4-11.4) Prothromb Time International Ratio 1.0 (0.9-1.1) Activated Partial Thromboplast Time 30 SEC (23-33) D-Dimer (Naila) 0.30 mg/L (0.00-0.50) Sodium Level 141 mmol/L (136-145) Potassium Level 3.4 mmol/L (3.5-5.1) Chloride Level 103 mmol/L (98-107) Carbon Dioxide Level 30 mmol/L (21-32) Anion Gap 8 (6-14) Blood Urea Nitrogen 9 mg/dL (7-20) Creatinine 0.8 mg/dL (0.6-1.0) Estimated GFR (Cockcroft-Gault) 104.1 Glucose Level 72 mg/dL (70-99) Calcium Level 9.2 mg/dL (8.5-10.1) Magnesium Level 2.0 mg/dL (1.8-2.4) Total Bilirubin 0.3 mg/dL (0.2-1.0) Direct Bilirubin 0.1 mg/dL (0.0-0.2) Aspartate Amino Transf (AST/SGOT) 14 U/L (15-37) Alanine Aminotransferase (ALT/SGPT) 18 U/L (14-59) Alkaline Phosphatase 81 U/L (46-116) Creatine Kinase 79 U/L (26-192) Troponin I Quantitative < 0.017 ng/mL (0-0.055) DL-Kec-E-Type Natriuretic Peptide 68 pg/mL (0-124) Total Protein 8.6 g/dL (6.4-8.2) Albumin 3.8 g/dL (3.4-5.0) Lipase 111 U/L (73-393) Urine Opiates Screen Neg (NEG) Urine Methadone Screen Neg (NEG) Urine Barbiturates Neg (NEG) Urine Phencyclidine Screen Neg (NEG) Urine Amphetamine/Methamphetamine Neg (NEG) Urine Benzodiazepines Screen Neg (NEG) Urine Cocaine Screen Neg (NEG) Urine Cannabinoids Screen Neg (NEG) Urine Ethyl Alcohol Neg (NEG) Urine Collection Type Unknown Urine Color Yellow Urine Clarity Cloudy Urine pH 6.0 Urine Specific [place] >=1.030 Urine Protein 30 mg/dl (NEG-TRACE) Urine Glucose (UA) Neg mg/dL (NEG) Urine Ketones (Stick) Trace mg/dL (NEG) Urine Blood Neg (NEG) Urine Nitrite Neg (NEG) Urine Bilirubin Neg (NEG) Urine Urobilinogen Dipstick 0.2 mg/dL (0.2 mg/dL) Urine Leukocyte Esterase Neg (NEG) Urine RBC 0 /HPF (0-2) Urine WBC 0 /HPF (0-4) Urine Squamous Epithelial Cells Many /LPF Urine Bacteria Mod /HPF (0-FEW) Urine Mucus Mod /LPF Brief Hospital Course Ms. Danielle is a 28 old female who presented with abdomen epigastric and chest pain. Discharge Information Condition at Discharge: Improved, Stable Disposition/Orders: D/C to Home Dischare Medications Current Medications Aspirin (Children'S Aspirin) 324 mg 1X ONCE PO Last administered on 01/07/19at 18:25; Admin Dose 324 MG; Start 01/07/19 at 18:30; Stop 01/07/19 at 18:31; Status DC Lactated Ringer's 1,000 ml @ 1,000 mls/hr Q1H IV Last administered on 01/07/19at 18:22; Admin Dose 1,000 MLS/HR; Start 01/07/19 at 18:19; Stop 01/07/19 at 19:18; Status DC Iohexol (Omnipaque 350 Mg/ml) 100 ml 1X ONCE IV Last administered on 01/07/19at 19:25; Admin Dose 100 ML; Start 01/07/19 at 19:15; Stop 01/07/19 at 19:22; Status DC Potassium Chloride (KCl Oral Soln) 40 meq 1X ONCE PO Last administered on 01/07/19at 19:39; Admin Dose 40 MEQ; Start 01/07/19 at 19:30; Stop 01/07/19 at 19:31; Status DC Info (Do NOT chart on this entry -- for MONITORING) 1 each PRN DAILY PRN MC SEE COMMENTS; Start 01/07/19 at 19:30; Stop 01/07/19 at 21:05; Status DC Ketorolac Tromethamine (Toradol 30mg Vial) 30 mg 1X ONCE IV Last administered on 01/07/19at 19:40; Admin Dose 30 MG; Start 01/07/19 at 19:30; Stop 01/07/19 at 19:34; Status DC Enoxaparin Sodium (Lovenox 80mg Syringe) 80 mg 1X ONCE SQ Last administered on 01/07/19at 20:53; Admin Dose 80 MG; Start 01/07/19 at 20:45; Stop 01/07/19 at 20:51; Status DC Acetaminophen (Tylenol) 1,000 mg 1X ONCE PO Last administered on 01/07/19at 20:53; Admin Dose 1,000 MG; Start 01/07/19 at 20:45; Stop 01/07/19 at 20:52; Status DC Acetaminophen (Tylenol) 1,000 mg 1X ONCE PO ; Start 01/07/19 at 20:45; Stop 01/07/19 at 20:45; Status DC Active Scripts Active Zantac (Ranitidine Hcl) 150 Mg Tablet 150 Mg PO BID Hydrocodone-Ibuprofen 7.5-200 (Hydrocodone/Ibuprofen) 1 Each Tablet 1 Tab PO PRN Q6HRS PRN Reglan (Metoclopramide Hcl) 10 Mg Tablet 10 Mg PO QID Meloxicam 7.5 Mg Tablet 7.5 Mg PO DAILY Levsin (Hyoscyamine Sulfate) 0.125 Mg Tablet 0.125 Mg PO QID Keflex (Cephalexin) 500 Mg Capsule 500 Mg PO TID 10 Days Keflex (Cephalexin) 500 Mg Capsule 1 Cap PO TID [place] 5-325 Tablet (Hydrocodone Bit/Acetaminophen) 1 Each Tablet 1 Tab PO QID PRN Zofran Odt (Ondansetron) 4 Mg Tab.rapdis 1 Tab SL Q8HRS Macrobid 100 Mg Capsule (Nitrofurantoin Monohyd/M-Cryst) 100 Mg Capsule 1 Cap PO BID Ena Disclaimer This chart was dictated in whole or in part using Voice Recognition software in a busy, high-work load, and often noisy Emergency Department environment. It may contain unintended and wholly unrecognized errors or omissions. ABBY OLIVIER MD Jan 07, 2019 19:16
[2019-01-07] MEDS: IOHEXOL 350 MG/ML 100 ML VIAL. IV ONE (19:25)
[2019-01-07 19:26] LABS: AMPHETAMINE/METHAMPHETAMINE NEG (NEG); BARBITURATES NEG (NEG); BENZODIAZEPINES NEG (NEG); CANNABINOIDS NEG (NEG); COCAINE NEG (NEG); METHADONE NEG (NEG); OPIATES NEG (NEG); PHENCYCLIDINE NEG (NEG)
[2019-01-07] MEDS ORDERED: CONTRAST GIVEN MC PRN (19:30)
[2019-01-07 19:31] LABS: CLARITY,URINE CLOUDY; COLOR,URINE YELLOW
[2019-01-07 19:32] LABS: BACTERIA,URINE MOD /HPF (0-FEW); BILIRUBIN,URINE NEG (NEG); GLUCOSE,URINE NEG (NEG); NITRITE,URINE NEG (NEG); RBC,URINE 0 /HPF (0-2); SQUAMOUS EPITHELIAL CELL,UR MANY /LPF; UROBILINOGEN,URINE 0.2 mg/dL (0.2 mg/dL); WBC,URINE 0 /HPF (0-4)
[2019-01-07] MEDS: POTASSIUM CHLORIDE 20 MEQ/15 ML ORAL LIQUID. PO ONE (19:39)
[2019-01-07] MEDS: KETOROLAC 30 MG/ML VIAL. IV ONE (19:40)
--- NOTE | 2019-01-07 19:59 | RAD ---
CTA chest with contrast dated 01/07/2019. No comparison available. CLINICAL INDICATION: Chest pain. Protein S deficiency. TECHNIQUE: Contiguous axial imaging the chest performed following the intravenous administration of 100 cc Omnipaque 350. Study was performed as dedicated PE protocol with thin cut coronal MIPS 3-D reconstruction. One or more of the following individualized dose reduction techniques were utilized for this examination: 1. Automated exposure control 2. Adjustment of the mA and/or kV according to patient size 3. Use of iterative reconstruction technique. FINDINGS: Contrast bolus is adequate. No evidence of central, lobar or segmental pulmonary embolus. Subsegmental branches are not well evaluated based on technique. Heart size within normal limits. No pericardial effusion. No mediastinal, hilar or axillary lymphadenopathy. There is some increased density at the anterior superior mediastinum that likely represents residual thymic tissue. Central airways are patent. Dependent opacity at the lower lobes, likely atelectasis. Lungs are otherwise clear. No consolidation or pleural effusion. No pneumothorax. There is a nonspecific small subpleural nodule in the right middle lobe on image 69 measures 3 mm small noncalcified subpleural nodule in the right lower lobe on image 57 measures 3 mm. Limited images of upper abdomen show stone filled gallbladder. Bone windows show no acute findings. IMPRESSION: 1. No evidence of central, lobar or segmental pulmonary embolus. 2. There are couple small noncalcified pulmonary nodules in the right middle lobe and right lower lobe, nonspecific. 3. Cholelithiasis. Electronically signed by: Aleksander Perez MD (01/07/2019 7:56 PM) [facility]
[2019-01-07] MEDS ORDERED: HYDR-1179 PO (20:08)
[2019-01-07] MEDS ORDERED: RANI-376 PO (20:08)
[2019-01-07] MEDS ORDERED: ACETAMINOPHEN 500 MG TABLET PO ONE (20:45)
[2019-01-07] MEDS: ENOXAPARIN ** NOTE DOSE ** SYRINGE SQ ONE (20:53)
[2019-01-07] MEDS: ACETAMINOPHEN 500 MG TABLET PO ONE (20:53)
[2019-01-07 21:00] VITALS: BP 116/62
--- NOTE | 2019-01-08 06:53 | EKG ---
[address] [address] Test Date: 2019-01-07 Test Time: 18:16:16 Pat Name: VITO DANIELLE Department: Room: Gender: F [employer]: : 1990 Requested By: ABBY OLIVIER Order Number: [id number] Reading MD: Measurements Intervals Kim Rate: 67 P: 38 WY: 128 QRS: 58 QRSD: 84 T: 30 QT: 396 QTc: 421 Interpretive Statements SINUS RHYTHM NO SPECIFIC ECG ABNORMALITIES RI6.01 No previous ECG available for comparison
== END 2019-01-07 21:00 | disposition home or self-care (01) ==
LOC: ER 17:56
DX: K80.20 Calculus of gallbladder without cholecystitis without obstruction (principal); R07.81 Pleurodynia; E87.6 Hypokalemia; D50.9 Iron deficiency anemia, unspecified; D72.821 Monocytosis (symptomatic); R11.2 Nausea with vomiting, unspecified; R19.7 Diarrhea, unspecified; K21.9 Gastro-esophageal reflux disease without esophagitis; Z90.710 Acquired absence of both cervix and uterus; Z88.2 Allergy status to sulfonamides; Z88.5 Allergy status to narcotic agent
CPT/HCPCS: 36415; 71046; 71275; 80048; 80076; 80307; 81001; 82550; 83690; 83735; 83880; 84443; 84484; 85025; 85379; 85610; 85730; 87086; 93005; 96361; 96372; 96374; 99285; J1650; J1885; J7120; Q9967

== ENCOUNTER → 2019-05-25 | Outpatient (CLI) | payer BC, OTHER ==
[~2019-05-25] MED LIST changes: +HYDR-1179 PO; +RANI-376 PO
[2019-05-25 11:22] LABS: BASO % 1 % (0-3); EOS # 0.2 x10^3/uL (0.0-0.7); EOS % 2 % (0-3); HEMATOCRIT 38.5 % (36.0-47.0); HEMOGLOBIN 12.4 g/dL (12.0-15.5); LYMPH # 2.1 x10^3/uL (1.0-4.8); LYMPH % 28 % (24-48); MEAN CORPUSCULAR HEMOGLOBIN 25 pg (25-35); MEAN CORPUSCULAR HGB CONC 32 g/dL (31-37); MEAN CORPUSCULAR VOLUME 79 fL (79-100); MONO # 0.8 x10^3/uL (0.0-1.1); MONO % 11 % (0-9); NEUT # 4.3 x10^3uL (1.8-7.7); NEUT % 58 % (31-73); PLATELET COUNT 267 x10^3/uL (140-400); RED BLOOD COUNT 4.86 x10^6/uL (3.50-5.40); RED CELL DISTRIBUTION WIDTH 16.9 % (11.5-14.5); WHITE BLOOD COUNT 7.4 x10^3/uL (4.0-11.0)
[2019-05-25 11:34] LABS: ALBUMIN 3.5 g/dL (3.4-5.0); ALBUMIN/GLOBULIN RATIO 0.8 (1.0-1.7); CREATININE 0.7 mg/dL (0.6-1.0); GFR 120.6; POTASSIUM 3.9 mmol/L (3.5-5.1); TOTAL BILIRUBIN 0.3 mg/dL (0.2-1.0); TOTAL PROTEIN 8.1 g/dL (6.4-8.2)
[2019-05-25 15:16] LABS: FREE T4 1.05 ng/dL (0.76-1.46); THYROID STIM HORMONE (TSH) 0.482 uIU/mL (0.358-3.740)
== END | disposition home or self-care (01) ==
LOC: PMG 10:16
PROVIDERS: ATTEND Registered Nurse
DX: Z13.6 Encounter for screening for cardiovascular disorders (principal); E03.9 Hypothyroidism, unspecified; D64.9 Anemia, unspecified
CPT/HCPCS: 36415; 80053; 80061; 84439; 84443; 84480; 85025

== ENCOUNTER → 2019-07-13 | Outpatient (CLI) | payer BC ==
--- NOTE | 2019-07-13 16:22 | RAD ---
Thyroid sonogram Clinical indications: Enlarged thyroid gland. Findings: The longitudinal and AP and transverse dimensions of the right lobe of the thyroid gland are 4.7 cm x 1.8 cm x 1.5 cm respectively. The right lobe is heterogeneous. The longitudinal and AP and transverse dimensions of the left lobe are 3.5 cm x 1.3 cm x 1.7 cm respectively. The left lobe is heterogeneous. The isthmus is homogeneous in appearance and measures 4 mm in thickness. It is heterogeneous as well. . Impression: Heterogeneous thyroid gland which may be seen with thyroiditis. Posterior to the inferior pole of the right lobe of the thyroid gland is a 14 mm hypoechoic nodule. This could represent a parathyroid adenoma or lymph node. Correlation with parathormone and serum calcium levels is recommended. Electronically signed by: Davion Flores MD (07/13/2019 4:20 PM) [facility]
== END | disposition home or self-care (01) ==
LOC: US 09:58
PROVIDERS: ATTEND Registered Nurse
DX: E04.1 Nontoxic single thyroid nodule (principal)
CPT/HCPCS: 76536

== ENCOUNTER 2019-10-20 19:20 | Emergency (ER) | payer BC, OTHER ==
[~2019-10-20] VITALS: Ht 160 cm; Wt 88.0 kg
--- NOTE | 2019-10-20 19:28 | PHYS DOC ---
Past History Past Medical History: Gallstones, GERD, Other Additional Past Medical Histor: SLE, Protein S, blood clots Past Surgical History: Hysterectomy Smoking: Non-smoker Alcohol Use: None Drug Use: None Adult General Chief Complaint Chief Complaint: "I ve been sick the last 4 days.. Nausea, Vomiting, Cough.. I hurt all over... Vomited may 10 times and 10 diarrhea times to today..." HPI HPI Patient is a 29 year old female who presents with above hx and complaints of generalized myalgia, arthralgia, malaise, vomiting, diarrhea, and dehydration. Patient states she has been compliant with her thyroid medications Zoloft and her lupus medication. Patient does smoke marijuana. No history of bad food intake. No history of recent travel outside the [place] area. No history of illness with her 2 kittens. Pt. follows with Dr. Canas.Pt. did not get flu vaccination this season. She does smoke marijuana. Review of Systems Review of Systems Constitutional: Subjective history fever or chills [] Eyes: Denies change in visual acuity, redness, or eye pain [] HENT: History of nasal congestion Respiratory: History of a non-productive cough and wheezing Cardiovascular: No additional information not addressed in HPI [] GI: Complaints of generalized abdominal pain, history of nausea vomiting and diarrhea : Denies dysuria or hematuria [] Musculoskeletal: Denies back pain or joint pain [] Integument: Denies rash or skin lesions [] Neurologic: Denies headache, focal weakness or sensory changes [] Endocrine: Denies polyuria or polydipsia [] All other systems were reviewed and found to be within normal limits, except as documented in this note. Family History Family History Noncontributory Current Medications Current Medications See nursing for home medications Allergies Allergies Allergies Coded Allergies Type Severity Reaction Last Updated Verified hydrocodone Allergy Unknown 11/04/18 Yes Sulfa (Sulfonamide Antibiotics) Adverse Reaction Severe Nausea and Vomiting 01/07/19 Yes Physical Exam Physical Exam Constitutional: Moderate acute distress, non-toxic appearance. [] HENT: Normocephalic, atraumatic, bilateral external ears normal, oropharynx dry, no oral exudates, nose patent] Eyes: PERRLA, EOMI, conjunctiva normal, no discharge. [] Neck: Normal range of motion, no tenderness, supple, no stridor. [] Cardiovascular: Tachycardia Heart rate regular rhythm, no murmur [] Lungs & Thorax: Bilateral breath sounds "equal at apex with few scattered wheezes auscultation [] Abdomen: Bowel sounds hyperactive soft, generalized tenderness, no masses, no pulsatile masses. [] Skin: Warm, dry, no erythema, no rash. [] Back: No tenderness, no CVA tenderness. [] Extremities: No tenderness, no cyanosis, no clubbing, ROM intact, no edema. [] Neurologic: Alert and oriented X 3, normal motor function, normal sensory function, no focal deficits noted. [] Psychologic: Affect anxious, judgement normal, mood normal. [] EKG EKG [] Radiology/Procedures Radiology/Procedures [][place] [address] IMAGING REPORT Signed PATIENT: VITO DANIELLE CACCOUNT: [id number] : 1990 LOCATION: ER AGE: 29 SEX: F EXAM STATUS: REG ER ORD. PHYSICIAN: ABBY OLIVIER MD REASON: N/V/D, COUGH, X A FEW HOURS. PROCEDURE: ACUTE ABDOMEN SERIES Acute abdominal series to include a PA chest radiograph 10/20/2019 Clinical History: Nausea, vomiting, diarrhea and cough for several hours. A PA digital radiograph of the chest was obtained. Two AP supine and an erect AP digital radiographs of the abdomen/pelvis were obtained. Comparison study is dated 01/07/2019. The cardiac and mediastinal silhouettes are within normal limits in size and configuration. No pulmonary infiltrate is seen. No pleural effusion or pneumothorax is noted. Surgical clips are seen within the right upper quadrant abdomen consistent with a cholecystectomy. The abdominal bowel gas pattern is nonobstructive. There is no evidence of free air. No radiopaque calculus is seen. The osseous structures are grossly intact. Impression: Nonobstructive bowel gas pattern. Electronically signed by: Joey Dunham MD (10/20/2019 11:33 PM) [id number] DICTATED AND SIGNED BY: JOEY DUNHAM MD DATE: 10/20/19 9854 CC: ABBY OLIVIER MD; MISSAEL, Course & Med Decision Making Course & Med Decision Making Pertinent Labs and Imaging studies reviewed. (See chart for details) Clear fluid diet only. No solids or milk products x 24 hrs. Must allow bowel rest. Follow up with primary. Fpc in place x 14 days. No travel, no crowds. If afebrile for days while off any NSAIDs or Tylenol may return to work after seven day isolation. Impression- 1. Abdomen pain 2. Nausea vomiting diarrhea- Acute Gastroenteritis 3. Elevated Sed.Rate 71 4. Hx of Lupus 5. Marijuana Use [] Dragon Disclaimer Dragon Disclaimer This electronic medical record was generated, in whole or in part, using a voice recognition dictation system. Departure Departure: Disposition: HOME/RESIDENCE PRIOR TO ADM Condition: STABLE Referrals: [facility] (PCP) Scripts Ondansetron Hcl (ZOFRAN) 8 Mg Tablet 8 MG PO QIDPRN PRN for active nausea and vomiting, #30 BOTTLE Prov: ABBY OLIVIER MD 10/20/19 Dragon Disclaimer This chart was dictated in whole or in part using Voice Recognition software in a busy, high-work load, and often noisy Emergency Department environment. It may contain unintended and wholly unrecognized errors or omissions. ABBY OLIVIER MD Oct 20, 2019 19:28
[2019-10-20] MEDS ORDERED: IPRATRPIUM/ALBUTEROL 0.5/2.5MG 3 ML NEBU. NEB ONE (19:45)
[2019-10-20] MEDS ORDERED: IV RINGERS SOLUTION,LACTATED 1,000 ML IV SCH (19:45)
[2019-10-20] MEDS ORDERED: ONDANSETRON PF 4 MG/2 ML VIAL. IVP ONE ×2 (20:00→20:15)
--- NOTE | 2019-10-20 20:07 | EKG ---
[address] [address] Test Date: 2019-10-20 Test Time: 19:49:30 Pat Name: VITO DANIELLE Department: Room: Gender: F Triage Clinician: : 1990 Requested By: ABBY OLIVIER Order Number: [id number] Reading MD: Measurements Intervals [place] Rate: 94 P: 42 [place]: 112 QRS: 70 QRSD: 82 T: 18 QT: 348 QTc: 435 Interpretive Statements SINUS RHYTHM NO SPECIFIC ECG ABNORMALITIES RI6.01 No previous ECG available for comparison
[2019-10-20 20:11] LABS: BASO % 0 % (0-3); EOS # 0.1 x10^3/uL (0.0-0.7); EOS % 1 % (0-3); HEMATOCRIT 41.6 % (36.0-47.0); HEMOGLOBIN 13.4 g/dL (12.0-15.5); LYMPH # 0.5 x10^3/uL (1.0-4.8); LYMPH % 5 % (24-48); MEAN CORPUSCULAR HEMOGLOBIN 26 pg (25-35); MEAN CORPUSCULAR HGB CONC 32 g/dL (31-37); MEAN CORPUSCULAR VOLUME 81 fL (79-100); MONO # 0.5 x10^3/uL (0.0-1.1); MONO % 5 % (0-9); NEUT # 9.1 x10^3uL (1.8-7.7); NEUT % 89 % (31-73); PLATELET COUNT 261 x10^3/uL (140-400); RED BLOOD COUNT 5.14 x10^6/uL (3.50-5.40); RED CELL DISTRIBUTION WIDTH 14.9 % (11.5-14.5); WHITE BLOOD COUNT 10.2 x10^3/uL (4.0-11.0)
[2019-10-20] MEDS ORDERED: HYDROcodon/IBUPROFEN 7.5/200MG 1 TAB TABLET PO ONE (20:15)
[2019-10-20 20:21] LABS: CALCIUM 9.5 mg/dL (8.5-10.1); CREATININE 0.9 mg/dL (0.6-1.0); GFR 90.2; POTASSIUM 4.1 mmol/L (3.5-5.1)
[2019-10-20 20:35] LABS: ALBUMIN 3.8 g/dL (3.4-5.0); DIRECT BILIRUBIN 0.1 mg/dL (0.0-0.2); TOTAL BILIRUBIN 0.2 mg/dL (0.2-1.0); TOTAL PROTEIN 8.2 g/dL (6.4-8.2)
[2019-10-20 21:16] LABS: INFLUENZA A PATIENT NEGATIVE (NEGATIVE); INFLUENZA B PATIENT NEGATIVE (NEGATIVE)
[2019-10-20] MEDS ORDERED: ONDA8TAB9 PO (21:32)
[2019-10-20] MEDS ORDERED: IV RINGERS SOLUTION,LACTATED 1,000 ML IV ONE (22:00)
[2019-10-20] MEDS ORDERED: ACETAMINOPHEN 500 MG TABLET PO ONE (22:30)
[2019-10-20 22:46] LABS: BARBITURATES NEG (NEG); BENZODIAZEPINES NEG (NEG); CANNABINOIDS POS (NEG); COCAINE NEG (NEG); METHADONE NEG (NEG); OPIATES NEG (NEG); PHENCYCLIDINE NEG (NEG)
[2019-10-20 22:52] LABS: AMPHETAMINE/METHAMPHETAMINE NEG (NEG)
[2019-10-20 22:55] LABS: MAGNESIUM 1.9 mg/dL (1.8-2.4)
[2019-10-20 23:09] LABS: BILIRUBIN,URINE NEG (NEG); CLARITY,URINE HAZY; COLOR,URINE YELLOW; GLUCOSE,URINE NEG (NEG); NITRITE,URINE NEG (NEG); RBC,URINE 0 /HPF (0-2); UROBILINOGEN,URINE 0.2 mg/dL (0.2 mg/dL)
[2019-10-20 23:10] LABS: BACTERIA,URINE MOD /HPF (0-FEW); SQUAMOUS EPITHELIAL CELL,UR MOD /LPF
[2019-10-20 23:11] LABS: AMORPHOUS SEDIMENT,UR PRESENT /HPF
--- NOTE | 2019-10-20 23:36 | RAD ---
Acute abdominal series to include a PA chest radiograph 10/20/2019 Clinical History: Nausea, vomiting, diarrhea and cough for several hours. A PA digital radiograph of the chest was obtained. Two AP supine and an erect AP digital radiographs of the abdomen/pelvis were obtained. Comparison study is dated 01/07/2019. The cardiac and mediastinal silhouettes are within normal limits in size and configuration. No pulmonary infiltrate is seen. No pleural effusion or pneumothorax is noted. Surgical clips are seen within the right upper quadrant abdomen consistent with a cholecystectomy. The abdominal bowel gas pattern is nonobstructive. There is no evidence of free air. No radiopaque calculus is seen. The osseous structures are grossly intact. Impression: Nonobstructive bowel gas pattern. Electronically signed by: Joey Dunham MD (10/20/2019 11:33 PM) [id number]
[2019-10-20 23:38] VITALS: BP 143/84
== END 2019-10-21 | disposition home or self-care (01) ==
LOC: ER 19:20
DX: K52.9 Noninfective gastroenteritis and colitis, unspecified (principal); R70.0 Elevated erythrocyte sedimentation rate; K21.9 Gastro-esophageal reflux disease without esophagitis; F12.10 Cannabis abuse, uncomplicated; Z88.5 Allergy status to narcotic agent; Z88.8 Allergy status to other drugs, medicaments and biological substances
CPT/HCPCS: 36415; 74022; 80048; 80076; 80307; 81001; 82150; 82550; 83690; 83735; 83880; 84443; 84484; 85025; 85379; 85651; 85730; 87086; 87804; 93005; 94640; 96361; 96374; 99285; J2405; J7120